=== PATIENT | female | born 1970 | race Caucasian/White ===

== ENCOUNTER → 2020-07-15 14:40 | Outpatient (CLI) | payer OTHER, SELFPAY ==
--- NOTE | 2020-07-15 | DI.ECHO.S_ITS ---
[facility]---------+ [facility] +---------+ : : [address] : : : : [id number] : : : : Phone: [phone]+ Echocardiogram Report + + :Name: JOYCELYN LOVE Study Date: 07/15/2020 Height: 65 in : :[facility] ReadingLocation: Weight: 143 lb : : Gender: Female BSA: 1.7 m2 : :: 1970 Age: 49 yrs BP: 132/70 mmHg: :Reason For Study: PALIPITATIONS : :Ordering Physician: BINH, : :FAYE Aguilar Performed By: Vivi Sandoval : :Referring: FAYE PURCELL : + + Interpretation Summary The ejection fraction is estimated to be 55-60%. There is no significant valvular heart disease. Procedure: A two-dimensional transthoracic echocardiogram with color flow and Doppler was performed. The study quality was technically adequate. There is no prior echocardiogram noted for this patient. The patient was in sinus rhythm with heart rates between 68-78 bpm during the exam. Left Ventricle: The left ventricle is normal in size and wall thickness. The ejection fraction is estimated to be 55-60%. There are no obvious focal wall motion abnormalities noted but poor endocardial definition reduces the sensitivity for the detection of such. Diastolic parameters suggest probable normal left ventricular diastolic function and normal filling pressures. Right Ventricle: The right ventricle is normal in size and function. Atria: Both atria are normal in size. There is no Doppler evidence for an interatrial shunt. Mitral Valve: The mitral valve is normal in structure and function. There is trace mitral regurgitation. Aortic Valve: The aortic valve is trileaflet. The aortic valve opens well. There is no aortic valve stenosis. No aortic regurgitation is present. Tricuspid Valve: The tricuspid valve is normal in structure and function. There is trace tricuspid regurgitation. Pulmonary artery pressures cannot be estimated because of the lack of a measurable TR jet velocity but the IVC suggests a CVP of around 3 mmHg. Pulmonic Valve: The pulmonic valve leaflets are thin and pliable; valve motion is normal. There is no pulmonic valvular regurgitation. Great Vessels: The aortic root is normal size. The ascending aorta is normal in size. The IVC is of normal diameter and collapses greater than 50% with a sniff. This suggests a low right atrial pressure of 3 mm Hg. Pericardium/ Pleura There is no pericardial effusion. There is no pleural effusion. MMode/2D Measurements & Calculations LVIDd: 5.1 cm LVOT diam: 2.0 cm LVIDs: 3.5 cm Ao root diam: 3.0 cm FS: 30.9 % asc Aorta Diam: 3.2 cm EPSS: 0.65 cm Ao Arch Diam (Prox Trans): 2.4 cm IVSd: 0.49 cm LVPWd: 0.61 cm LV howard. diameter/BSA (cm/m^2): 3.0 LV sys. diameter/BSA (cm/m^2): 2.1 LA A2 area: 16.5 cm2 RA long axis: 4.4 cm LA A4 area: 15.8 cm2 RA area: 11.3 cm2 LA length (vol): 4.5 cm RA vol: 24.8 ml LA vol: 49.3 ml RA : 14.4 ml/m2 LA vol index: 28.7 ml/m2 IVC diam: 1.6 cm RVD1 (basal): 2.3 cm TAPSE: 2.0 cm Doppler Measurements & Calculations Ao V2 max: 132.6 cm/sec LVOT Max Petros: 83.1 cm/sec Ao V2 mean: 95.4 cm/sec LV V1 max P.8 mmHg Ao max P.0 mmHg LV V1 VTI: 14.3 cm Ao mean P.0 mmHg SALOME(I,D): 1.8 cm2 Ao V2 VTI: 25.8 cm SALOME(V,D): 2.0 cm2 sev ratio: 0.55 SALOME indexed to BSA (cm^2/m^2): 1.1 MV E max petros: 66.6 cm/sec PA V2 max: 82.0 cm/sec MV A max petros: 47.8 cm/sec PA V2 mean: 57.8 cm/sec MV E/A: 1.4 PA mean P.5 mmHg Med Peak E' Petros: 5.0 cm/sec PA pr(Accel): 25.9 mmHg E/E' med: 13.4 Lat Peak E' Petros: 10.5 cm/sec E/E' lat: 6.3 E/e' average: 9.9 MV dec time: 0.19 sec SV(LVOT): 46.6 ml Reading Physician:04:44 PM
== END ==
PROVIDERS: PCP Family Medicine; Referring Provider Family Medicine; Visit Provider Family Medicine
DX: R00.2 Palpitations (principal)
CPT/HCPCS: 93306

== ENCOUNTER → 2020-08-17 14:54 | Outpatient (CLI) | payer OTHER, SELFPAY ==
--- NOTE | 2020-08-17 | DI.MG.S_ITS ---
BILATERAL DIGITAL DIAGNOSTIC MAMMOGRAM 3D/2D: 08/17/2020 CLINICAL: Breast pain. Comparison is made to exam dated: 01/21/2019 mammogram - [facility]. The tissue of both breasts is heterogeneously dense. This may lower the sensitivity of mammography. No significant masses, calcifications, or other findings are seen in either breast. IMPRESSION: INCOMPLETE: NEEDS ADDITIONAL IMAGING EVALUATION There is no abnormality seen in the right breast to correspond with the pain in the sub-areolar depth, however, ultrasound is recommended. Ultrasound will be performed immediately following the current exam. This exam was interpreted at Station ID: [id number]. NOTE: For mammograms, a report in lay terms will be sent to the patient. Approximately 15% of breast malignancies will not be visualized mammographically. In the management of a palpable breast mass, a negative mammogram must not discourage biopsy of a clinically suspicious lesion. Electronically Signed By: Regulo Winslow M.D. ddp/:08/17/2020 15:30:06 ACR BI-RADS Category 0: Incomplete [id number]
--- NOTE | 2020-08-17 | DI.US.S_ITS ---
LIMITED ULTRASOUND OF RIGHT BREAST: 08/17/2020 CLINICAL: Focal right breast pain. Comparison is made to exams dated: 08/17/2020 mammogram - [facility] and 01/21/2019 mammogram - [facility]. Real-time ultrasound of the right breast retroareolar was performed on the area of interest. No discrete cystic or solid mass lesion identified in the area of retroareaolar focal pain. IMPRESSION: NEGATIVE There is no sonographic evidence of malignancy. There is no abnormality seen in the right breast to correspond with the pain in the sub-areolar region, however, clinical followup is recommended. A 1 year screening mammogram is recommended. This exam was interpreted at Station ID: [id number]. Electronically Signed By: Regulo matamoros/:08/17/2020 15:42:36 letter sent: Clinical Evaluation Ultrasound BI-RADS: 1 Negative
== END ==
PROVIDERS: PCP Family Medicine; Referring Provider Family Medicine; Visit Provider Family Medicine
DX: N64.4 Mastodynia (principal)
CPT/HCPCS: 76642; 77066; G0279